=== PATIENT | female | born 1960 | race Caucasian/White ===

== ENCOUNTER 2019-01-24 13:01 | Emergency (ER) | payer MEDICAID, OTHER ==
[~2019-01-24] VITALS: Ht 165.1 cm; Wt 92.6 kg
[2019-01-24 13:20] VITALS: BP 145/76
--- NOTE | 2019-01-24 13:25 | NUR ---
PT TO ER BED CHAIR
--- NOTE | 2019-01-24 13:46 | NUR ---
[facility]
[2019-01-24] MEDS ORDERED: MORPHINE SULFATE 4 MG/ML SYR IM ONE ×2 (14:05→17:40)
[2019-01-24] MEDS ORDERED: diphenhydrAMINE 50 MG/ML VIAL IVP ONE (14:05)
[2019-01-24] MEDS ORDERED: NACL 0.9% 1,000 ML IV ONE (14:05)
[2019-01-24] MEDS ORDERED: NEOMYCIN/POLYMYXIN/BACITRACIN 0.9 GM/1 PKT TP ONE (14:20)
[2019-01-24] MEDS ORDERED: ceFAZolin 1,000 MG VIAL ONE ×2 (14:23→14:40)
--- NOTE | 2019-01-24 14:43 | NUR ---
IV 18GA LT A/C DONE, BLOOD SENT TO LAB. FAMILY AT BEDSIDE. IVP/IVF GIVEN-NADR AT THIS TIME. PAIN WAS 10/10-POST IVP PAIN MEDS NOW 10. REPORT GIVEN TO YANI VARGHESE
--- NOTE | 2019-01-24 15:03 | NUR ---
PT BIB FAMILY C/O LACERATION RT HAND 3DR FINGER S/P CUT TIP OFF BY FLOOR CLEAING MACHINE. PT REPORTS PAIN SHARP PAIN AT 8/10. BLEEDING IS CONTROLLED. NO EXPOSED BONE. VSS. HX-NONE MEDS-NONE
--- NOTE | 2019-01-24 17:30 | NUR ---
[facility] APPLYING DRESSING AT THIS TIME. BACITRACIN AND XEROFORM HAVE BEEN APPLIED, BEING WRAPPED WITH TUBE GAUZE. PT HAS BEEN INSTRUCTED TO LEAVE DRESSING ON UNTIL BEING SEEING BY PLASTIC SURGON ON Sunday AT 09:00. PT HAS BEEN INSTRUCTED TO CALL PLASTIC SURGEON ON Sunday.
--- NOTE | 2019-01-24 18:00 | NUR ---
Patient noted to have existing wounds upon arrival to ER. GOOD PMS NOTED. NO BLEEDING AT THIS TIME. Wound covered with dressing. Physician informed.
[2019-01-24 18:34] VITALS: BP 139/72
--- NOTE | 2019-01-24 18:35 | NUR ---
Patient discharged with v/s stable. Written and verbal after care instructions given and explained. Patient alert, oriented and verbalized understanding of instructions. Ambulatory with steady gait. All questions addressed prior to discharge. ID band removed. Patient advised to follow up with PMD. Rx of AUGMENTIN,TYLENOL given. Patient educated on indication of medication including possible reaction and side effects. Opportunity to ask questions provided and answered.
== END 2019-01-24 18:35 | disposition home or self-care (01) ==
LOC: MED 13:01
DX: S68.122A Partial traumatic metacarpophalangeal amputation of right middle finger, initial encounter (principal); W26.0XXA Contact with knife, initial encounter; Y93.E5 Activity, floor mopping and cleaning; Y92.098 Other place in other non-institutional residence as the place of occurrence of the external cause; Y99.8 Other external cause status
CPT/HCPCS: 73140; 90471; 90715; 96365; 96366; 96372; 96375; 99283; J0690; J1200; J2270; J7030